=== PATIENT | male | born 1945 | race Hispanic/Latino ===

== ENCOUNTER 2024-03-08 11:32 | Emergency (ER) | payer MEDICARE, OTHER ==
[2024-03-08] MEDS ORDERED: Lidocaine 1% PF 5 ML VIAL ONE (12:47)
== END 2024-03-08 14:33 | disposition home or self-care (01) ==
LOC: ERS 11:32
DX: L02.215 Cutaneous abscess of perineum (principal); L03.111 Cellulitis of right axilla; B35.6 Tinea cruris; I11.0 Hypertensive heart disease with heart failure; I50.9 Heart failure, unspecified
CPT/HCPCS: 10060